=== PATIENT | male | born 1995 | race Caucasian/White ===

== ENCOUNTER 2022-12-16 19:56 | Emergency (ER) | payer MEDICAID ==
[~2022-12-16] VITALS: Ht 180.3 cm; Wt 80.0 kg
[2022-12-16 21:03] VITALS: BP 121/72
[2022-12-16] MEDS ORDERED: NAPROXEN 375MG TABLET PO ONE (22:00)
== END 2022-12-17 01:13 | disposition left against medical advice (07) ==
LOC: ER 19:59
DX: G89.29 Other chronic pain (principal); M25.552 Pain in left hip; R26.89 Other abnormalities of gait and mobility
CPT/HCPCS: 73521; 99283